=== PATIENT | male | born 1960 | race African-American/Black ===

== ENCOUNTER 2018-02-17 14:23 | Inpatient (IN) | payer OTHER ==
[2018-02-17 16:54] VITALS: BMI 19.2
--- NOTE | 2018-02-17 19:34 | HP ---
Admission ROS [facility] Chief Complaint: alcohol rehab Allergies/Adverse Reactions: Allergies Allergy/AdvReac Type Severity Reaction Status Date / Time No Known Allergies Allergy Verified 02/17/18 17:04 History of Present Illness: 57 yo male with hx of alcohol and nicotine dependence is here seeking rehab. Reports discharged to day from today at [facility] after suffering a seizure on 02/13/18. Unable to recall last detox treatment. PMHX: HTN, seizure d/o ( last seizure one month ago), glaucoma (bilateral), depression. Denies suicidal / homicidal or hx of suicide attempt. No significant period of sobriety. Exam Limitations: No Limitations - Ebola screening Have you traveled outside of the country in the last 21 days: No Have you had contact with anyone from an Ebola affected area: No Have you been sick,other than usual withdrawal symptoms: No Do you have a fever: No - Review of Systems Constitutional: No Symptoms Reported EENT: reports: See HPI Respiratory: reports: No Symptoms reported Cardiac: reports: No Symptoms Reported GI: reports: No Symptoms Reported : reports: No Symptoms Reported Musculoskeletal: reports: Back Pain Integumentary: reports: No Symptoms Reported Neuro: reports: See HPI Endocrine: reports: Increased Thirst Hematology: reports: No Symptoms Reported Psychiatric: reports: Orientated x3, Depressed Other Systems: Reviewed and Negative Patient History - Patient Medical History Hx Anemia: No Hx Asthma: No Hx Chronic Obstructive Pulmonary Disease (COPD): No Hx Cancer: No Hx Cardiac Disorders: No Hx Congestive Heart Failure: No Hx Hypertension: Yes Hx Hypercholesterolemia: Yes Hx Pacemaker: No HX Cerebrovascular Accident: No Hx Seizures: Yes (last seizure one month ago ) Hx Dementia: No Hx Diabetes: No Hx Gastrointestinal Disorders: No Hx Liver Disease: No Hx Genitourinary Disorders: No Hx Sexually Transmitted Disorders: No Hx Renal Disease (ESRD): No Hx Thyroid Disease: No Hx Human Immunodeficiency Virus (HIV): No (declines testing ) Hx Hepatitis C: No Hx Depression: Yes Hx Suicide Attempt: No Hx Bipolar Disorder: No Hx Schizophrenia: No - Patient Surgical History Past Surgical History: Yes Hx Neurologic Surgery: Yes (bilateral cataract ) Hx Cataract Extraction: No Hx Cardiac Surgery: No Hx Lung Surgery: No Hx Breast Surgery: No Hx Breast Biopsy: No Hx Abdominal Surgery: No Hx Appendectomy: No Hx Cholecystectomy: No Hx Genitourinary Surgery: No Hx Section: No Hx Orthopedic Surgery: No Hx Hysterectomy: No Anesthesia Reaction: No - PPD History Previous Implant?: No Documented Results: Negative w/o proof Implanted On Prior R Admission?: No PPD to be Administered?: Yes - Smoking Cessation Smoking history: Current every day smoker Have you smoked in the past 12 months: Yes Aproximately how many cigarettes per day: 3 Hx Chewing Tobacco Use: No Initiated information on smoking cessation: Yes 'Breaking Loose' booklet given: 02/17/18 - Substance & Tx. History Hx Alcohol Use: Yes Hx Substance Use: Yes Substance Use Type: Alcohol Hx Substance Use Treatment: Yes ([facility] 02/13/18 -02/17/18) - Substances Abused Alcohol Route: Oral Frequency: Daily Amount used: 1/2 pint vodka Age of first use: 23 Date of Last Use: 01/21/18 (release from [facility] today for seizure ) Family Disease History - Family Disease History Family Disease History: [place]: Mother (, Cancer ), Other: Father (, unknown ), Mother Admission Physical Exam [facility] - Vital Signs Vital Signs: Vital Signs - 24 hr 02/17/18 16:52 Temperature 97.8 F Pulse Rate 62 Respiratory 19 Rate Blood Pressure 135/78 - Physical General Appearance: Yes: Disheveled, Thin, Anxious HEENTM: Yes: EOMI, Hearing grossly Normal, Normal ENT Inspection, Normocephalic , Normal Voice, SHY, Pharynx Normal, Tm's normal Respiratory: Yes: Chest Non-Tender, Lungs Clear, Normal Breath Sounds, No Respiratory Distress, No Accessory Muscle Use Neck: Yes: No masses,lesions,Nodules, Trachea in good position Breast: Yes: Breast Exam Deferred Cardiology: Yes: Regular Rhythm, Regular Rate Abdominal: Yes: Normal Bowel Sounds, Non Tender, Flat, Soft Genitourinary: Yes: Within Normal Limits Back: Yes: Normal Inspection Musculoskeletal: Yes: full range of Motion, Gait Steady, Pelvis Stable Extremities: Yes: Normal Capillary Refill, Normal Inspection, Normal Range of Motion, Non-Tender Neurological: Yes: bilingual sales consultant II-XII NML intact, Fully Oriented, Alert, Motor Strength 5/5, Normal Mood/Affect, Normal Response Integumentary: Yes: Normal Color, Dry, Warm Lymphatic: Yes: Within Normal Limits - Diagnostic (1) Hypertension Current Visit: Yes Status: Chronic Qualifiers: Hypertension type: essential hypertension Qualified Code(s): I10 - Essential (primary) hypertension (2) Seizure disorder Current Visit: Yes Status: Chronic (3) Alcohol dependence Current Visit: Yes Status: Acute Qualifiers: Substance use status: uncomplicated Qualified Code(s): F10.20 - Alcohol dependence, uncomplicated (4) Nicotine dependence Current Visit: Yes Status: Acute Qualifiers: Nicotine product type: cigarettes (5) Glaucoma Current Visit: Yes Status: Chronic Qualifiers: Glaucoma type: unspecified Laterality: unspecified laterality Qualified Code(s): H40.9 - Unspecified glaucoma BHS Breath Alcohol Content Breath Alcohol Content: 0 Urine Drug Screen - Results Drug Screen Negative: No Urine Drug Screen Results: BZO-Benzodiazepines Inpatient Rehab Admission - Initial Determination Are CD services needed?: Yes Free of communicable disease: Yes - Rehab Admission Criteria Previous failed treatment: Yes Poor recovery environment: Yes Comorbidities: Yes Lacks judgement: Yes Patient is meeting Inpatient Rehab admission criteria:: Yes
[2018-02-17] MEDS ORDERED: MAGNESIUM CITRATE 300 ML BOTTLE PO PRN (19:45)
[2018-02-17] MEDS ORDERED: MAG HYDROX/AL HYDROX/SIMETH 30 ML UNIT-DOSE CUP PO PRN (19:45)
[2018-02-17] MEDS ORDERED: MENTHOL/PHENOL 1 EACH UD MM PRN (19:45)
[2018-02-17] MEDS ORDERED: LOPERAMIDE HCL 2 MG CAPSULE PO PRN (19:45)
[2018-02-17] MEDS ORDERED: NICOTINE POLACRILEX 2 MG GUM BUC PRN (19:45)
[2018-02-17] MEDS ORDERED: ACETAMINOPHEN 325 MG TABLET (FP) PO PRN (19:45)
[2018-02-17] MEDS ORDERED: P-EPHED 60MG/TRIPROLIDI 2.5MG TABLET PO PRN (19:45)
[2018-02-17] MEDS ORDERED: MAGNESIUM HYDROX 2400MG/30ML ORAL SUSPENSION 30 ML CUP PO PRN (19:45)
[2018-02-17] MEDS ORDERED: IBUPROFEN 400 MG TABLET (FP) PO PRN (19:45)
[2018-02-17] MEDS ORDERED: guaiFENesin/D-METHORPHAN HB 10 ML UNIT-DOSE CUPS PO PRN (19:45)
[2018-02-17] MEDS: THIAMINE HCL 100 MG TABLET (FP) PO SCH (21:45)
[2018-02-17] MEDS ORDERED: TUBERCULIN PPD 5 TU/0.1ML VIAL ID ONE (21:46)
[2018-02-17] MEDS ORDERED: MELATONIN 5 MG TABLETS PO PRN (22:00)
[2018-02-17] MEDS ORDERED: METHAZOLAMIDE 25 MG PO SCH (22:00)
[2018-02-17] MEDS: LATANOPROST 0.005% OPHTH SOLN 2.5ML BOTTLE OU SCH (22:31)
--- NOTE | 2018-02-18 07:50 | HP ---
Psychiatrist Admission - Data Date of interview: 02/18/18 Admission source: [facility] Identifying data: This is the first [facility] admission for this 57 years old [place]-born male, father of a 26 yearrs old son, unemployed on public assistance, domiciled living with his sister Medical History: Significant for hypertension, dyslipidemia, seizure disorder( head injury) and surgery both eyes for cataracts & glaucoma. Smokes 3 cigarettes daily Psychiatric History: Denies history of psychiatric treatment Physical/Sexual Abuse/Trauma History: Denies history of emotional, physical or sexual abuse as well as DV relationship. No service Additional Comment: Denies criminal history Vital Signs: Vital Signs - 24 hr 02/17/18 02/18/18 02/18/18 16:52 01:22 03:30 Temperature 97.8 F Pulse Rate 62 Respiratory 19 18 18 Rate Blood Pressure 135/78 02/18/18 06:55 Temperature 98.0 F Pulse Rate 73 Respiratory 18 Rate Blood Pressure 123/81 Allergies/Adverse Reactions: Allergies Allergy/AdvReac Type Severity Reaction Status Date / Time No Known Allergies Allergy Verified 02/17/18 17:04 Date of last physical exam: 02/17/18 Concur with the findings of this exam: Yes - Substance Abuse/Tx History Hx Alcohol Use: Yes Hx Substance Use: No Substance Use Type: Alcohol (Started drinking alcohol at age 23, consumes half a pint of vodka daily. Last drank on 01/21/18) Hx Substance Use Treatment: Yes (2 previous inpt detox. First inpt rehab) Mental Status Exam - Mental Status Exam Alert and Oriented to: Time, Place, Person Cognitive Function: Fair Patient Appearance: Well Groomed Mood: Hopeful, Euthymic Affect: Appropriate Patient Behavior: Cooperative Speech Pattern: Clear Voice Loudness: Normal Thought Process: Intact Thought Disorder: Not Present Hallucinations: Denies Suicidal Ideation: Denies Homicidal Ideation: Denies Insight/Judgement: Fair Sleep: Well Appetite: Good Muscle strength/Tone: Normal Gait/Station: Normal Psychiatric Findings - Problem List ([place] 1, 2,3) (1) Alcohol dependence Current Visit: Yes Status: Acute Qualifiers: Substance use status: uncomplicated Qualified Code(s): F10.20 - Alcohol dependence, uncomplicated (2) Nicotine dependence Current Visit: Yes Status: Chronic Qualifiers: Nicotine product type: cigarettes (3) Hypertension Current Visit: Yes Status: Chronic Qualifiers: Hypertension type: essential hypertension Qualified Code(s): I10 - Essential (primary) hypertension (4) HLD (hyperlipidemia) Current Visit: Yes Status: Chronic (5) Seizure disorder Current Visit: Yes Status: Chronic (6) Glaucoma Current Visit: Yes Status: Chronic Qualifiers: Glaucoma type: unspecified Laterality: unspecified laterality Qualified Code(s): H40.9 - Unspecified glaucoma - Initial Treatment Plan Initial Treatment Plan: Monitor progress
[2018-02-18 10:12] LABS: HEMATOCRIT 44.8 % (35.4-49); HEMOGLOBIN 14.9 GM/dL (11.7-16.9); MCH 31.6 pg (25.7-33.7); MCHC 33.3 g/dl (32.0-35.9); MEAN CELL VOLUME 94.8 fl (80-96); MEAN PLT VOLUME 7.8 fl (7.5-11.1); PLATELET COUNT 156 K/MM3 (134-434); RBC 4.72 M/mm3 (4.00-5.60); RDW 13.4 % (11.9-15.9); WHITE BLOOD COUNT 4.8 K/mm3 (4.0-10.0)
[2018-02-18 10:13] LABS: CHLORIDE 105 mmol/L (98-107); POTASSIUM 4.2 mmol/L (3.5-5.1); SODIUM 142 mmol/L (136-145)
--- NOTE | 2018-02-18 10:35 | EKG ---
Test Reason : Blood Pressure : / mmHG Vent. Rate : 055 BPM Atrial Rate : 055 BPM P-R Int : 124 ms QRS Dur : 102 ms QT Int : 430 ms P-R-T Axes : 023 051 048 degrees QTc Int : 411 ms SINUS BRADYCARDIA MINIMAL VOLTAGE CRITERIA FOR LVH, MAY BE NORMAL VARIANT BORDERLINE ECG NO PREVIOUS ECGS AVAILABLE Confirmed by ABNER HAMILTON, MAHI ([id number]) on 02/18/2018 10:34:48 AM Referred By: Confirmed By:MAHI LVEINE MD
[2018-02-18] MEDS: CALCIUM (OYSTER SHELL) 500 MG TABLET (FP) PO SCH (10:44)
[2018-02-18] MEDS: PRENATAL VITAMINS W/ FOLIC ACID TABLET (FP) PO SCH (10:44)
[2018-02-18] MEDS: HYDROCHLOROTHIAZIDE 25 MG TABLET (FP) PO SCH (10:44)
[2018-02-18] MEDS: amLODIPine BESYLATE 5 MG TABLET (FP) PO SCH (10:44)
[2018-02-18] MEDS: carBAMazepine XR 400 MG TAB.ER.12H PO SCH (10:44)
[2018-02-18] MEDS: TIMOLOL 0.5% OPHTHALMIC SOL 5 ML BOTTLE OU SCH (10:45)
[2018-02-18 10:48] LABS: ALK PHOS 56 U/L (45-117); ANION GAP 10 (8-16); BILIRUBIN,TOTAL 0.2 mg/dL (0.2-1.0); BLOOD UREA NITROGEN 11 mg/dL (7-18); CALCIUM 9.9 mg/dL (8.5-10.1); CO2 27 mmol/L (21-32); CREATININE 0.8 mg/dL (0.7-1.3); GLUCOSE,RANDOM 90 mg/dL (74-106); SGOT/AST 17 U/L (15-37); SGPT/ALT 25 U/L (12-78); TOT PROT 7.9 g/dl (6.4-8.2)
[2018-02-18] MEDS: METHAZOLAMIDE 25 MG PO SCH ×2 (12:04→12:36)
--- NOTE | 2018-02-18 15:00 | PN ---
[facility] Progress Note Note: Vital Signs Temperature 98.0 F 02/18/18 06:55 Pulse Rate 75 02/18/18 10:00 Respiratory Rate 18 02/18/18 10:00 Blood Pressure 138/100 02/18/18 10:00 O2 Sat by Pulse Oximetry (%) Laboratory Last Values WBC 4.8 K/mm3 (4.0-10.0) 02/18/18 08:30 RBC 4.72 M/mm3 (4.00-5.60) 02/18/18 08:30 Hgb 14.9 GM/dL (11.7-16.9) 02/18/18 08:30 Hct 44.8 % (35.4-49) 02/18/18 08:30 MCV 94.8 fl (80-96) 02/18/18 08:30 MCH 31.6 pg (25.7-33.7) 02/18/18 08:30 MCHC 33.3 g/dl (32.0-35.9) 02/18/18 08:30 RDW 13.4 % (11.9-15.9) 02/18/18 08:30 Plt Count 156 K/MM3 (134-434) 02/18/18 08:30 MPV 7.8 fl (7.5-11.1) 02/18/18 08:30 Sodium 142 mmol/L (136-145) 02/18/18 08:30 Potassium 4.2 mmol/L (3.5-5.1) 02/18/18 08:30 Chloride 105 mmol/L (98-107) 02/18/18 08:30 Carbon Dioxide 27 mmol/L (21-32) 02/18/18 08:30 Anion Gap 10 (8-16) 02/18/18 08:30 BUN 11 mg/dL (7-18) 02/18/18 08:30 Creatinine 0.8 mg/dL (0.7-1.3) 02/18/18 08:30 Creat Clearance w eGFR > 60 (>60) 02/18/18 08:30 Random Glucose 90 mg/dL (74-106) 02/18/18 08:30 Calcium 9.9 mg/dL (8.5-10.1) 02/18/18 08:30 Total Bilirubin 0.2 mg/dL (0.2-1.0) 02/18/18 08:30 AST 17 U/L (15-37) 02/18/18 08:30 ALT 25 U/L (12-78) 02/18/18 08:30 Alkaline Phosphatase 56 U/L (45-117) 02/18/18 08:30 Total Protein 7.9 g/dl (6.4-8.2) 02/18/18 08:30 Albumin 4.0 g/dl (3.4-5.0) 02/18/18 08:30 Carbamazepine < 0.5 ug/ml (4.0-12.0) L* 02/18/18 08:30 Patient stable. repeat carbamezepine levels in AM continue to monitor
[2018-02-18] MEDS ORDERED: METHAZOLAMIDE 25 MG PO SCH (16:38)
[2018-02-18] MEDS: THIAMINE HCL 100 MG TABLET (FP) PO SCH (21:29)
[2018-02-18] MEDS: LATANOPROST 0.005% OPHTH SOLN 2.5ML BOTTLE OU SCH (21:30)
[2018-02-19] MEDS: METHAZOLAMIDE 25 MG PO SCH ×2 (09:58→12:51)
[2018-02-19] MEDS: HYDROCHLOROTHIAZIDE 25 MG TABLET (FP) PO SCH (09:58)
[2018-02-19] MEDS: amLODIPine BESYLATE 5 MG TABLET (FP) PO SCH (09:59)
[2018-02-19] MEDS: CALCIUM (OYSTER SHELL) 500 MG TABLET (FP) PO SCH (09:59)
[2018-02-19] MEDS: carBAMazepine XR 400 MG TAB.ER.12H PO SCH (09:59)
[2018-02-19] MEDS: PRENATAL VITAMINS W/ FOLIC ACID TABLET (FP) PO SCH (09:59)
[2018-02-19] MEDS: TIMOLOL 0.5% OPHTHALMIC SOL 5 ML BOTTLE OU SCH (10:01)
--- NOTE | 2018-02-19 14:35 | PN ---
[facility] Progress Note Note: Patient evaluated after suffering a witnessed seizure which lasted about 30 seconds, suffered no injury, patient did not loose consciousness and recall having a seizure. Denies headache, vertigo, paresthesia, vision changes, CP or SOB. Patient AOx3 no distress , no changes in LOC S1 S2 no JVD lungs clear throughout ACCESS CLINICIAN I - XII intact full ROM skin intact, no erythema , no signs of trauma home medication list reviewed, patient with hx of being on keppra 100 mg BID, last rx 02/05/18. Patient reports he last took the medication on 02/17/18 and forgot to report it during assessment. Plan: seizure precautions keppra levels ordered stat dose keppra 500mg continue scheduled 10pm dose of keppra 1000 pending repeat tegratol levels continue to monitor, if worsening symptoms present patient to be transfer to [facility] for further eval
[2018-02-19] MEDS ORDERED: levETIRAcetam 500 MG TABLET (FP) PO ONE (14:37)
[2018-02-19] MEDS: THIAMINE HCL 100 MG TABLET (FP) PO SCH (21:40)
[2018-02-19] MEDS: levETIRAcetam 500 MG TABLET (FP) PO SCH (21:40)
[2018-02-19] MEDS: LATANOPROST 0.005% OPHTH SOLN 2.5ML BOTTLE OU SCH (21:41)
--- NOTE | 2018-02-20 | PN ---
[facility] Progress Note Note: Nurse called to state patients' heart rate was 125. B/P 114/82, R: 18. Patient denies chest pain, SOB. Denies anxiety. Vital Signs - 24 hr 02/19/18 02/19/18 02/19/18 00:30 03:30 06:53 Temperature 98.4 F Pulse Rate 94 H Respiratory 18 18 18 Rate Blood Pressure 132/89 02/19/18 02/19/18 10:00 13:50 Temperature 98.6 F Pulse Rate 97 H 82 Respiratory 20 Rate Blood Pressure 133/83 144/86 Monitor. Notify provider of further increased heart rate, chest pain, or anxiety.
[2018-02-20] MEDS: METHAZOLAMIDE 25 MG PO SCH ×2 (08:40→12:30)
[2018-02-20] MEDS: HYDROCHLOROTHIAZIDE 25 MG TABLET (FP) PO SCH (10:22)
[2018-02-20] MEDS: PRENATAL VITAMINS W/ FOLIC ACID TABLET (FP) PO SCH (10:22)
[2018-02-20] MEDS: CALCIUM (OYSTER SHELL) 500 MG TABLET (FP) PO SCH (10:22)
[2018-02-20] MEDS: levETIRAcetam 500 MG TABLET (FP) PO SCH ×2 (10:22→21:59)
[2018-02-20] MEDS: amLODIPine BESYLATE 5 MG TABLET (FP) PO SCH (10:22)
[2018-02-20] MEDS: carBAMazepine XR 400 MG TAB.ER.12H PO SCH (10:22)
[2018-02-20] MEDS: TIMOLOL 0.5% OPHTHALMIC SOL 5 ML BOTTLE OU SCH (10:23)
--- NOTE | 2018-02-20 15:00 | PN ---
[facility] Progress Note Note: Vital Signs Temperature 98.8 F 02/20/18 07:30 Pulse Rate 94 H 02/20/18 10:00 Respiratory Rate 18 02/20/18 10:00 Blood Pressure 123/82 02/20/18 10:00 O2 Sat by Pulse Oximetry (%) Laboratory Last Values WBC 4.8 K/mm3 (4.0-10.0) 02/18/18 08:30 RBC 4.72 M/mm3 (4.00-5.60) 02/18/18 08:30 Hgb 14.9 GM/dL (11.7-16.9) 02/18/18 08:30 Hct 44.8 % (35.4-49) 02/18/18 08:30 MCV 94.8 fl (80-96) 02/18/18 08:30 MCH 31.6 pg (25.7-33.7) 02/18/18 08:30 MCHC 33.3 g/dl (32.0-35.9) 02/18/18 08:30 RDW 13.4 % (11.9-15.9) 02/18/18 08:30 Plt Count 156 K/MM3 (134-434) 02/18/18 08:30 MPV 7.8 fl (7.5-11.1) 02/18/18 08:30 Sodium 142 mmol/L (136-145) 02/18/18 08:30 Potassium 4.2 mmol/L (3.5-5.1) 02/18/18 08:30 Chloride 105 mmol/L (98-107) 02/18/18 08:30 Carbon Dioxide 27 mmol/L (21-32) 02/18/18 08:30 Anion Gap 10 (8-16) 02/18/18 08:30 BUN 11 mg/dL (7-18) 02/18/18 08:30 Creatinine 0.8 mg/dL (0.7-1.3) 02/18/18 08:30 Creat Clearance w eGFR > 60 (>60) 02/18/18 08:30 Random Glucose 90 mg/dL (74-106) 02/18/18 08:30 Calcium 9.9 mg/dL (8.5-10.1) 02/18/18 08:30 Total Bilirubin 0.2 mg/dL (0.2-1.0) 02/18/18 08:30 AST 17 U/L (15-37) 02/18/18 08:30 ALT 25 U/L (12-78) 02/18/18 08:30 Alkaline Phosphatase 56 U/L (45-117) 02/18/18 08:30 Total Protein 7.9 g/dl (6.4-8.2) 02/18/18 08:30 Albumin 4.0 g/dl (3.4-5.0) 02/18/18 08:30 Carbamazepine 5.0 ug/ml (4.0-12.0) 02/19/18 09:15 RPR Titer Nonreactive (NONREACTIVE) 02/18/18 08:30 Chest x-ray reviewed no acute pathology present. patient stable, no distress ambulating in the unit Carbamazepine levels within normal limits Pending keppra levels continue to monitor
[2018-02-20] MEDS: LATANOPROST 0.005% OPHTH SOLN 2.5ML BOTTLE OU SCH (21:59)
[2018-02-20] MEDS: THIAMINE HCL 100 MG TABLET (FP) PO SCH (22:00)
[2018-02-21] MEDS: PRENATAL VITAMINS W/ FOLIC ACID TABLET (FP) PO SCH (10:27)
[2018-02-21] MEDS: HYDROCHLOROTHIAZIDE 25 MG TABLET (FP) PO SCH (10:27)
[2018-02-21] MEDS: CALCIUM (OYSTER SHELL) 500 MG TABLET (FP) PO SCH (10:27)
[2018-02-21] MEDS: levETIRAcetam 500 MG TABLET (FP) PO SCH ×2 (10:27→22:08)
[2018-02-21] MEDS: METHAZOLAMIDE 25 MG PO SCH ×2 (10:28→12:30)
[2018-02-21] MEDS: amLODIPine BESYLATE 5 MG TABLET (FP) PO SCH (10:29)
[2018-02-21] MEDS: TIMOLOL 0.5% OPHTHALMIC SOL 5 ML BOTTLE OU SCH (10:29)
[2018-02-21] MEDS: carBAMazepine XR 400 MG TAB.ER.12H PO SCH (10:29)
[2018-02-21] MEDS: THIAMINE HCL 100 MG TABLET (FP) PO SCH (22:08)
[2018-02-21] MEDS: LATANOPROST 0.005% OPHTH SOLN 2.5ML BOTTLE OU SCH (22:08)
[2018-02-22] MEDS: HYDROCHLOROTHIAZIDE 25 MG TABLET (FP) PO SCH (10:20)
[2018-02-22] MEDS: CALCIUM (OYSTER SHELL) 500 MG TABLET (FP) PO SCH (10:20)
[2018-02-22] MEDS: carBAMazepine XR 400 MG TAB.ER.12H PO SCH (10:20)
[2018-02-22] MEDS: PRENATAL VITAMINS W/ FOLIC ACID TABLET (FP) PO SCH (10:21)
[2018-02-22] MEDS: METHAZOLAMIDE 25 MG PO SCH ×2 (10:21→15:07)
[2018-02-22] MEDS: amLODIPine BESYLATE 5 MG TABLET (FP) PO SCH (10:21)
[2018-02-22] MEDS: levETIRAcetam 500 MG TABLET (FP) PO SCH ×2 (10:21→21:40)
[2018-02-22] MEDS: TIMOLOL 0.5% OPHTHALMIC SOL 5 ML BOTTLE OU SCH (10:22)
[2018-02-22] MEDS ORDERED: levETIRAcetam 250 MG TABLET (FP) PO ONE (20:50)
[2018-02-22] MEDS: THIAMINE HCL 100 MG TABLET (FP) PO SCH (21:38)
[2018-02-22] MEDS: LATANOPROST 0.005% OPHTH SOLN 2.5ML BOTTLE OU SCH (21:39)
[2018-02-23] MEDS: PRENATAL VITAMINS W/ FOLIC ACID TABLET (FP) PO SCH (10:45)
[2018-02-23] MEDS: TIMOLOL 0.5% OPHTHALMIC SOL 5 ML BOTTLE OU SCH (10:46)
[2018-02-23] MEDS: CALCIUM (OYSTER SHELL) 500 MG TABLET (FP) PO SCH (10:46)
[2018-02-23] MEDS: HYDROCHLOROTHIAZIDE 25 MG TABLET (FP) PO SCH (10:46)
[2018-02-23] MEDS: METHAZOLAMIDE 25 MG PO SCH ×2 (10:47→12:32)
[2018-02-23] MEDS: amLODIPine BESYLATE 5 MG TABLET (FP) PO SCH (10:49)
[2018-02-23] MEDS: levETIRAcetam 500 MG TABLET (FP) PO SCH ×2 (11:00→21:51)
[2018-02-23] MEDS: carBAMazepine XR 400 MG TAB.ER.12H PO SCH (12:08)
[2018-02-23] MEDS: THIAMINE HCL 100 MG TABLET (FP) PO SCH (21:51)
[2018-02-23] MEDS: LATANOPROST 0.005% OPHTH SOLN 2.5ML BOTTLE OU SCH (21:53)
[2018-02-24] MEDS: METHAZOLAMIDE 25 MG PO SCH ×2 (09:00→13:20)
[2018-02-24] MEDS: TIMOLOL 0.5% OPHTHALMIC SOL 5 ML BOTTLE OU SCH (10:46)
[2018-02-24] MEDS: PRENATAL VITAMINS W/ FOLIC ACID TABLET (FP) PO SCH (10:46)
[2018-02-24] MEDS: levETIRAcetam 500 MG TABLET (FP) PO SCH ×2 (10:46→21:46)
[2018-02-24] MEDS: amLODIPine BESYLATE 5 MG TABLET (FP) PO SCH (10:46)
[2018-02-24] MEDS: CALCIUM (OYSTER SHELL) 500 MG TABLET (FP) PO SCH (10:46)
[2018-02-24] MEDS: HYDROCHLOROTHIAZIDE 25 MG TABLET (FP) PO SCH (10:46)
[2018-02-24] MEDS: carBAMazepine XR 400 MG TAB.ER.12H PO SCH (10:46)
[2018-02-24] MEDS: THIAMINE HCL 100 MG TABLET (FP) PO SCH (21:46)
[2018-02-24] MEDS: LATANOPROST 0.005% OPHTH SOLN 2.5ML BOTTLE OU SCH (21:48)
[2018-02-25] MEDS: METHAZOLAMIDE 25 MG PO SCH ×2 (09:00→13:00)
[2018-02-25] MEDS: TIMOLOL 0.5% OPHTHALMIC SOL 5 ML BOTTLE OU SCH (10:42)
[2018-02-25] MEDS: carBAMazepine XR 400 MG TAB.ER.12H PO SCH (10:43)
[2018-02-25] MEDS: amLODIPine BESYLATE 5 MG TABLET (FP) PO SCH (10:43)
[2018-02-25] MEDS: CALCIUM (OYSTER SHELL) 500 MG TABLET (FP) PO SCH (10:43)
[2018-02-25] MEDS: levETIRAcetam 500 MG TABLET (FP) PO SCH ×2 (10:43→22:07)
[2018-02-25] MEDS: PRENATAL VITAMINS W/ FOLIC ACID TABLET (FP) PO SCH (10:43)
[2018-02-25] MEDS: HYDROCHLOROTHIAZIDE 25 MG TABLET (FP) PO SCH (10:43)
[2018-02-25] MEDS: THIAMINE HCL 100 MG TABLET (FP) PO SCH (22:07)
[2018-02-25] MEDS: LATANOPROST 0.005% OPHTH SOLN 2.5ML BOTTLE OU SCH (22:09)
[2018-02-26] MEDS: METHAZOLAMIDE 25 MG PO SCH ×2 (07:59→11:54)
[2018-02-26] MEDS: TIMOLOL 0.5% OPHTHALMIC SOL 5 ML BOTTLE OU SCH (10:02)
[2018-02-26] MEDS: levETIRAcetam 500 MG TABLET (FP) PO SCH ×2 (10:02→21:30)
[2018-02-26] MEDS: HYDROCHLOROTHIAZIDE 25 MG TABLET (FP) PO SCH (10:02)
[2018-02-26] MEDS: CALCIUM (OYSTER SHELL) 500 MG TABLET (FP) PO SCH (10:02)
[2018-02-26] MEDS: amLODIPine BESYLATE 5 MG TABLET (FP) PO SCH (10:02)
[2018-02-26] MEDS: carBAMazepine XR 400 MG TAB.ER.12H PO SCH (10:02)
[2018-02-26] MEDS: PRENATAL VITAMINS W/ FOLIC ACID TABLET (FP) PO SCH (10:02)
[2018-02-26] MEDS: THIAMINE HCL 100 MG TABLET (FP) PO SCH (21:30)
[2018-02-26] MEDS: LATANOPROST 0.005% OPHTH SOLN 2.5ML BOTTLE OU SCH (21:31)
[2018-02-27] MEDS: carBAMazepine XR 400 MG TAB.ER.12H PO SCH (10:35)
[2018-02-27] MEDS: TIMOLOL 0.5% OPHTHALMIC SOL 5 ML BOTTLE OU SCH (10:35)
[2018-02-27] MEDS: amLODIPine BESYLATE 5 MG TABLET (FP) PO SCH (10:35)
[2018-02-27] MEDS: HYDROCHLOROTHIAZIDE 25 MG TABLET (FP) PO SCH (10:35)
[2018-02-27] MEDS: PRENATAL VITAMINS W/ FOLIC ACID TABLET (FP) PO SCH (10:35)
[2018-02-27] MEDS: CALCIUM (OYSTER SHELL) 500 MG TABLET (FP) PO SCH (10:35)
[2018-02-27] MEDS: levETIRAcetam 500 MG TABLET (FP) PO SCH ×2 (10:35→21:30)
[2018-02-27] MEDS: METHAZOLAMIDE 25 MG PO SCH ×2 (10:37→12:43)
[2018-02-27 15:18] LABS: URINE APPEARANCE CLEAR; URINE BILIRUBIN NEGATIVE (<2.0 mg/dL); URINE COLOR YELLOW; URINE GLUCOSE (UA) NEGATIVE (NEGATIVE); URINE KETONE NEGATIVE (NEGATIVE); URINE LEUK ESTERASE NEGATIVE (NEGATIVE); URINE NITRITE NEGATIVE (NEGATIVE); URINE PROTEIN NEGATIVE (NEGATIVE); URINE UROBILINOGEN NEGATIVE mg/dL (0.2-1.0)
[2018-02-27] MEDS: LATANOPROST 0.005% OPHTH SOLN 2.5ML BOTTLE OU SCH (21:30)
[2018-02-27] MEDS: THIAMINE HCL 100 MG TABLET (FP) PO SCH (21:30)
[2018-02-28] MEDS: TIMOLOL 0.5% OPHTHALMIC SOL 5 ML BOTTLE OU SCH (10:17)
[2018-02-28] MEDS: amLODIPine BESYLATE 5 MG TABLET (FP) PO SCH (10:17)
[2018-02-28] MEDS: carBAMazepine XR 400 MG TAB.ER.12H PO SCH (10:17)
[2018-02-28] MEDS: levETIRAcetam 500 MG TABLET (FP) PO SCH ×2 (10:17→21:50)
[2018-02-28] MEDS: PRENATAL VITAMINS W/ FOLIC ACID TABLET (FP) PO SCH (10:17)
[2018-02-28] MEDS: METHAZOLAMIDE 25 MG PO SCH ×2 (10:17→12:39)
[2018-02-28] MEDS: CALCIUM (OYSTER SHELL) 500 MG TABLET (FP) PO SCH (10:18)
[2018-02-28] MEDS: HYDROCHLOROTHIAZIDE 25 MG TABLET (FP) PO SCH (10:18)
[2018-02-28] MEDS: LATANOPROST 0.005% OPHTH SOLN 2.5ML BOTTLE OU SCH (21:49)
[2018-02-28] MEDS: THIAMINE HCL 100 MG TABLET (FP) PO SCH (21:50)
[2018-03-01] MEDS: METHAZOLAMIDE 25 MG PO SCH ×2 (09:01→12:35)
[2018-03-01] MEDS: amLODIPine BESYLATE 5 MG TABLET (FP) PO SCH (10:45)
[2018-03-01] MEDS: CALCIUM (OYSTER SHELL) 500 MG TABLET (FP) PO SCH (10:45)
[2018-03-01] MEDS: PRENATAL VITAMINS W/ FOLIC ACID TABLET (FP) PO SCH (10:45)
[2018-03-01] MEDS: levETIRAcetam 500 MG TABLET (FP) PO SCH ×2 (10:45→21:51)
[2018-03-01] MEDS: TIMOLOL 0.5% OPHTHALMIC SOL 5 ML BOTTLE OU SCH (10:45)
[2018-03-01] MEDS: carBAMazepine XR 400 MG TAB.ER.12H PO SCH (10:45)
[2018-03-01] MEDS: HYDROCHLOROTHIAZIDE 25 MG TABLET (FP) PO SCH (10:45)
[2018-03-01] MEDS: LATANOPROST 0.005% OPHTH SOLN 2.5ML BOTTLE OU SCH (21:51)
[2018-03-01] MEDS: THIAMINE HCL 100 MG TABLET (FP) PO SCH (21:52)
[2018-03-02 06:51] VITALS: BP 136/91; PULSE 92; TEMP 97.9
--- NOTE | 2018-03-02 07:02 | PN ---
Psychiatric Progress Note Vital Signs: Vital Signs Period Temp Pulse Resp BP Sys/Black Pulse Ox Last 24 Hr 97.6 F-97.9 F 81-92 18-18 120-136/86-91 Date of Session: 03/02/18 Chief Complaint:: Discharge Note HPI: Patient addressing Alcohol Dependence coorbid with Nicotine Dependence ROS: HTN, HLD, Seizure Disorder, Glaucoma Current Medications: Active Medications Generic Name Dose Route Start Last Admin Trade Name Freq PRN Reason Stop Dose Admin Acetaminophen 650 mg 02/17/18 19:45 Tylenol - PO Q4H PRN FEVER Al Hydroxide/Mg Hydroxide 30 ml 02/17/18 19:45 Mylanta Oral Suspension - PO Q6H PRN DYSPEPSIA Amlodipine Besylate 5 mg 02/18/18 10:00 03/01/18 10:45 Norvasc - PO 5 mg DAILY ARABELLA Administration Calcium Carbonate 500 mg 02/18/18 10:00 03/01/18 10:45 Os-Delvis 500mg - PO 500 mg DAILY ARABELLA Administration Carbamazepine 400 mg 02/18/18 10:00 03/01/18 10:45 Tegretol Xr - PO 400 mg DAILY ARABELLA Administration Eucalyptus/Menthol/Phenol/Sorbitol 1 each 02/17/18 19:45 Cepastat Lozenge - MM Q4H PRN SORE THROAT Guaifenesin 10 ml 02/17/18 19:45 Robitussin Dm - PO Q6H PRN COUGH Hydrochlorothiazide 25 mg 02/18/18 10:00 03/01/18 10:45 Hctz - PO 25 mg DAILY ARABELLA Administration Ibuprofen 400 mg 02/17/18 19:45 Motrin - PO Q6H PRN Pain level 4-6 Latanoprost 1 drop 02/17/18 22:00 03/01/18 21:51 Xalatan 0.005% Eye Drops - OU 1 drop HS ARABELLA Administration Levetiracetam 1,000 mg 02/19/18 22:00 03/01/18 21:51 Keppra - PO 1,000 mg BID ARABELLA Administration Loperamide HCl 4 mg 02/17/18 19:45 Imodium - PO Q6H PRN DIARRHEA Magnesium Citrate 300 ml 02/17/18 19:45 Citroma - PO Q48H PRN CONSTIPATION Magnesium Hydroxide 30 ml 02/17/18 19:45 Milk Of Magnesia - PO DAILY PRN CONSTIPATION Melatonin 5 mg 02/17/18 22:00 Melatonin PO HS PRN INSOMNIA Nicotine Polacrilex 2 mg 02/17/18 19:45 Nicorette Gum - BUC Q2H PRN NICOTINE REPLACEMENT RX Non-Formulary Med ( 25 each 02/18/18 16:47 03/01/18 12:35 Methazolamide 25mg) PO 25 each BID@0830,1230 ARABELLA Administration Multivit/Folic Acid/Iron 1 tab 02/18/18 10:00 03/01/18 10:45 Vitamins (Sjr) - PO 1 tab DAILY ARABELLA Administration Pseudoephedrine/Triprolidine 1 combo 02/17/18 19:45 Actifed - PO TID PRN NASAL CONGESTION Thiamine HCl 100 mg 02/17/18 22:00 03/01/18 21:52 Vitamin B1 - PO 100 mg HS ARABELLA Administration Timolol Maleate 1 drop 02/18/18 10:00 03/01/18 10:45 Timoptic 0.5% OU 1 drop DAILY ARABELLA Administration Current Side Effect: No Lab tests ordered: Yes Lab tests reviewed: Yes Provider note:: Patient has completed this program today. He has met his treatment goals and will continue to address his issues in outpatient treatment at [facility]. Told mortgage or loan underwriter that from his participation in this program, he has learned the importance of surrounding himself with a sober support network in order to maintain abstinence. He is stable for discharge today Total face to face time:: 35 Mental Status Exam - Mental Status Exam Alert and Oriented to: Time, Place, Person Cognitive Function: Fair Patient Appearance: Well Groomed Mood: Hopeful, Euthymic Affect: Appropriate Patient Behavior: Cooperative Speech Pattern: Clear Voice Loudness: Normal Thought Process: Intact, Goal Oriented Thought Disorder: Not Present Hallucinations: Denies Suicidal Ideation: Denies Homicidal Ideation: Denies Insight/Judgement: Fair Sleep: Fair Appetite: Good Muscle strength/Tone: Normal Gait/Station: Normal Psychiatric Treatment Plan - Problem List (1) Alcohol dependence Current Visit: Yes Qualifiers: Substance use status: uncomplicated Qualified Code(s): F10.20 - Alcohol dependence, uncomplicated (2) Nicotine dependence Current Visit: Yes Qualifiers: Nicotine product type: cigarettes (3) Hypertension Current Visit: Yes Qualifiers: Hypertension type: essential hypertension Qualified Code(s): I10 - Essential (primary) hypertension (4) HLD (hyperlipidemia) Current Visit: Yes (5) Seizure disorder Current Visit: Yes (6) Glaucoma Current Visit: Yes Qualifiers: Glaucoma type: unspecified Laterality: unspecified laterality Qualified Code(s): H40.9 - Unspecified glaucoma Initial treatment plan: Patient is discharged today and referred to [facility] for outpatient treatment
[2018-03-02] MEDS: METHAZOLAMIDE 25 MG PO SCH (09:30)
[2018-03-02] MEDS: TIMOLOL 0.5% OPHTHALMIC SOL 5 ML BOTTLE OU SCH (09:46)
[2018-03-02] MEDS: CALCIUM (OYSTER SHELL) 500 MG TABLET (FP) PO SCH (09:46)
[2018-03-02] MEDS: carBAMazepine XR 400 MG TAB.ER.12H PO SCH (09:46)
[2018-03-02] MEDS: levETIRAcetam 500 MG TABLET (FP) PO SCH (09:46)
[2018-03-02] MEDS: PRENATAL VITAMINS W/ FOLIC ACID TABLET (FP) PO SCH (09:46)
[2018-03-02] MEDS: HYDROCHLOROTHIAZIDE 25 MG TABLET (FP) PO SCH (09:46)
[2018-03-02] MEDS: amLODIPine BESYLATE 5 MG TABLET (FP) PO SCH (09:49)
== END 2018-03-02 11:30 | disposition home or self-care (01) | DRG 772 ==
LOC: YASAS 14:23 → Y5N 18:18
PROVIDERS: ADMIT Psychiatry & Neurology Psychiatry; ATTEND Psychiatry & Neurology Psychiatry
PROC: HZ42ZZZ Group Counseling for Substance Abuse Treatment, Cognitive-Behavioral (ICD-10-PCS; principal; 2018-02-17)
DX: F10.20 Alcohol dependence, uncomplicated (principal); F17.210 Nicotine dependence, cigarettes, uncomplicated; I10 Essential (primary) hypertension; E78.5 Hyperlipidemia, unspecified; G40.909 Epilepsy, unspecified, not intractable, without status epilepticus; H40.9 Unspecified glaucoma
CPT/HCPCS: 36415; 71046-TC-FY; 80053; 80156; 81003; 85027; 86593; 93005; 93010